=== PATIENT | male | born 2000 | race Caucasian/White ===

== ENCOUNTER → 2021-11-12 08:04 | Outpatient (BNVA) | payer SELFPAY | PROVIDERS: Visit Provider Internal Medicine | DX: S60.141A Contusion of right ring finger with damage to nail, initial encounter (principal); X58.XXXA Exposure to other specified factors, initial encounter | CPT/HCPCS: 73140; 99203 ==

== ENCOUNTER → 2021-11-17 13:07 | Outpatient (BNVA) | payer SELFPAY | PROVIDERS: Visit Provider Physician Assistant Medical | DX: S67.194D Crushing injury of right ring finger, subsequent encounter (principal); S60.14 Contusion of ring finger with damage to nail; W23.0XXD Caught, crushed, jammed, or pinched between moving objects, subsequent encounter; L03.011 Cellulitis of right finger | CPT/HCPCS: 99213 ==

== ENCOUNTER → 2021-11-20 13:04 | Outpatient (BNVA) | payer SELFPAY | PROVIDERS: Visit Provider Physician Assistant | DX: S67.194D Crushing injury of right ring finger, subsequent encounter (principal); W23.0XXD Caught, crushed, jammed, or pinched between moving objects, subsequent encounter | CPT/HCPCS: 99213 ==

== ENCOUNTER 2023-06-28 06:48 | Emergency (ER) | payer MEDICAID, SELFPAY ==
[2023-06-28 06:56] VITALS: BP 128/99; PULSE 104; RESP 22; TEMP 37; O2SAT 98; BMI 23.1
--- NOTE | 2023-06-28 07:21 | ED.GENADULT ---
HPI - General Adult General Chief complaint: Abdominal Pain Stated complaint: kidney stones Time Seen by Provider: 06/28/23 07:13 Source: patient Mode of arrival: ambulatory Limitations: no limitations History of Present Illness HPI narrative: 22 y o male PMH nephrolithiasis 2 months ago, seen at [facility], now presenting for evaluation of dysuria, urinary frequency and flank pain x2 days. Patient denies any trauma to the area. Patient reports that two days ago he woke up with dark brown, cloudy urine and discomfort with urination with associated bilateral flank pain. He reports that his pain with urination has been increasing and that as of yesterday he started urinating very frequently, stating every five minutes I was in the bathroom . This morning he reports increase in the flank pain, bilateral but L>R, describing it as intermittent stabbing type of pain which comes and goes. Also endorsing chills. Patient also states it is extremely difficult to get comfortable. Has been using Ibuprofen without relief. Of note, patient was seen and treated at [facility] 2 months ago for nephrolithiasis and a UTI, patient reports he passed the stones on his own at home and reports he did not finish his antibiotics. Patient presents today stating he took one dose each of the leftover antibiotics this morning, bringing bottles of Doxycycline and Keflex with him today. Patient denying fevers, chest pain, shortness of breath, abdominal pain, dizziness, hematuria, bowel or bladder incontinence, saddle paresthesias. Related Data Previous Rx's Medication Instructions Recorded prednisone 20 mg tablet 40 mg (2 x 20 mg) PO DAILY 5 days 06/28/23 #10 tabs tamsulosin 0.4 mg capsule (Flomax) 0.4 mg PO DAILY 2 weeks #14 caps 06/28/23 Allergies Allergy/AdvReac Type Severity Reaction Status Date / Time sumatriptan [From Imitrex] AdvReac Swelling Verified 06/28/23 07:01 Review of Systems Review of Systems: Constitutional : No Weight loss, No Fever, + Chills, No Fatigue, No Malaise Eyes: No Eye Pain, No Swelling, No Redness Cardiovascular : No Chest Pain, No SOB, No Dyspnea on Exertion, No Orthopnea, No Edema, No Palpitations Respiratory : No Cough, No Sputum, No Wheezing Gastrointestinal : No Nausea, No Vomiting, No Diarrhea, No Constipation, No abdominal Pain, No Hematochezia, No Melena Genitourinary : +Dysuria, +Urinary Frequency, No Hematuria, +Flank pain Musculoskeletal : No joint pain, No Myalgias, No Joint Swelling Skin : No Skin Lesions, No rash Neuro : No Weakness, No Numbness, No Dizziness, No Headache Psych : No Anxiety/Panic, No Depression All other systems reviewed and are negative Yes all other systems are reviewed and are negative [facility] Past Medical History Attestation statement: The following information was validated with the patient. Source: old records reviewed Social History Social History Smoked in Last 30 Days: No Substance Use Type: Marijuana Advance Directives: No Advance Directives Information Provided: Yes Physical Exam ED Vital Signs: Vital Signs - 24 hr 06/28/23 06:56 06/28/23 10:00 06/28/23 11:59 Temperature 98.6 F Pulse Rate 104 H 87 Respiratory Rate 22 H 16 14 Blood Pressure 128/99 H 129/74 Pulse Oximetry 98 97 Oxygen Delivery Method Room Air Room Air BMI result Body Mass Index 23.1 VSS, mildly tachycardic Appearance: Alert.? Oriented X3.? No acute distress.?Patient on his knees bending forward leaning onto a stretcher, frequently adjusting position, uncomfortable. Head: Normocephalic, atraumatic, no step-offs or deformities Eyes: Pupils equal, round and reactive to light.? Neck: Normal inspection.? Neck supple.? CVS: Normal heart rate and rhythm.? Pulses normal.? Respiratory: No respiratory distress.? Breath sounds normal.? Abdomen: Soft and nondistended, suprapubic TTP, otherwise nontender. No rebound or guarding, no peritoneal signs. Skin: Skin warm and dry.? Normal skin color.? Normal skin turgor.? Extremities: No lower extremity edema.? No calf ttp. 5/5 strength to bilateral upper and lower extremities Back: No midline tenderness, no C-spine tenderness, full range of motion, + CVA tenderness bilaterally, L>R Neuro: Oriented X 3.? No motor deficit.? No sensory deficit. CN 2-12 intact. No saddle paresthesias, gross sensation in tact. 2+ PT, DP, AT pulses b/l Course Reevaluation(s) Reevaluation #1: CBC within normal limits. Chemistry with no acute findings requiring intervention. Normal lactic acid. UA with blood and leukocyte esterases, no bacteria. CT abdomen pelvis with bilateral nephrolithiasis, 3 mm nonobstructive radiopaque calculi to the right proximal ureter with mild hydronephrosis, partially obstructive 3 mm radiopaque calculi left distal ureter with hydroureter and hydronephrosis. Mild constipation also noted. Will reach out to Urology to make him aware of this case. Patient very uncomfortable. Will give morphine as well. urology will come see patient in the department will likely get stent /a procedure and possible admission. Time: 09:17 Reevaluation #2: Patient reports his pain is completely gone. He does not Want to stay in the hospital he does not want specialty consult, further labs, intervention. He states he has to go home. He is telling me that he will stay here without his girlfriend and his girlfriend is not staying in the hospital with him. I did explain to him the risks versus benefits of staying in leaving, he verbalizes understanding. Will send him home with Urology follow-up. Patient to be leaving against medical advice Time: 12:11 Medications Administered Discontinued Medications Generic Name Dose Route Start Last Admin Trade Name Freq PRN Reason Stop Dose Admin Sodium Chloride 1,000 mls @ 999 mls/hr 06/28/23 07:30 06/28/23 09:16 Ns IV 06/28/23 08:30 Infused .Q1H1M LISA Infusion Sodium Chloride 1,000 mls @ 999 mls/hr 06/28/23 09:30 06/28/23 11:16 Ns IV 06/28/23 10:30 Infused .Q1H1M LISA Infusion Ketorolac Tromethamine 30 mg 06/28/23 08:00 06/28/23 08:11 Ketorolac Tromethamine 15 Mg/Ml Vial IVPUSH 06/28/23 08:01 30 mg ONCE ONE Administration Morphine Sulfate 4 mg 06/28/23 09:17 06/28/23 11:16 Morphine Sulfate 4 Mg/Ml Cartridge IVPUSH 06/28/23 09:18 Not Given ONCE ONE Protocol Prednisone 20 mg 06/28/23 09:15 06/28/23 09:37 Prednisone 20 Mg Tablet PO 06/28/23 09:16 20 mg ONCE ONE Administration Tamsulosin HCl 0.4 mg 06/28/23 09:15 06/28/23 09:37 Tamsulosin Hcl 0.4 Mg Capsule PO 06/28/23 09:16 0.4 mg ONCE ONE Administration Medical Decision Making Medical Decision Making [facility] Narrative: 07 22 y o male presenting for evaluation of dysuria, urinary frequency and bilateral flank pain x2 days, now with chills PE remarkable for + CVA tenderness bilaterally, L>R and suprapubic TTP, no other abdominal TTP, no rebound or guarding, no peritoneal signs. Mildly tachycardic but afebrile. Uncomfortable appearing Concern for UTI vs nephrolithiasis vs pyelonephritis. Less likely hydronephrosis but will r/o. Unlikely musculoskeletal pain given urinary symptoms, b/l flank pain without trauma and hx of nephrolithiasis with similar sxs. No concern for cauda equina, no saddle paresthesias, gross sensation intact, no bowel or bladder incontinence. No concern for epidural abscess, no hx of IVDU, recent trauma, not immunocompromised. no signs of cord compression. Will rule out metabolic derangements. Plan -- labs, imaging Differential Diagnosis Differential Diagnoses: The differential diagnosis associated with the presentation includes Concern for UTI vs nephrolithiasis vs pyelonephritis. Less likely hydronephrosis but will r/o. Unlikely musculoskeletal pain given urinary symptoms, b/l flank pain without trauma and hx of nephrolithiasis with similar sxs. No concern for cauda equina, no saddle paresthesias, gross sensation intact, no bowel or bladder incontinence. No concern for epidural abscess, no hx of IVDU, recent trauma, not immunocompromised. no signs of cord compression. Will rule out metabolic derangements. Admission/Observation Consideration of admission/observation: Escalation of care including admission/observation considered Unlikely Consult Healthcare Provider Management of the patient was discussed with: Angle Shear Operator ( Urology) Lab Data [facility] Lab Attestation statement: I reviewed the patient's lab results. 06/28/23 07:38 06/28/23 07:38 Labs: Lab Results 06/28/23 06/28/23 Range/Units 07:38 07:46 WBC 9.4 (4.8-10.8) X10*3/uL RBC 4.82 (4.60-5.80) X10*6/uL Hgb 15.5 (14.0-18.0) g/dl Hct 44.1 (42.0-52.0) % MCV 91.5 (80.0-98.0) fL MCH 32.2 (27.0-33.0) pg MCHC 35.1 (31.0-36.0) g/dl RDW 12.4 (11.0-16.0) % Plt Count 230 (160-400) X10*3/uL MPV 9.1 L (9.4-12.4) fL Absolute Nucleated RBC 0.000 (0.0-0.012) X10*3/uL Nucleated RBC % (auto) 0.0 (0.0-0.2) /100WBC Sodium 137 (135-145) mmol/L Potassium 3.5 (3.3-5.1) mmol/L Chloride 102 (96-108) mmol/L Carbon Dioxide 23 (22-29) mmol/L Anion Gap 16 (12-20) BUN 7 L (9-16) mg/dL Creatinine 0.88 (0.5-1.4) mg/dL Estim Creat Clear Calc 150.7 Estimated GFR > 60 Random Glucose 114 (60-115) mg/dL Lactic Acid 1.3 (0.5-2.0) mmol/L Calcium 9.7 (8.4-10.2) mg/dL Total Bilirubin 0.6 (0.0-1.0) mg/dL AST 14 (5-37) U/L ALT 7 (0-40) U/L Alkaline Phosphatase 74 (39-117) U/L Total Protein 7.4 (6.5-8.0) g/dL Albumin 4.6 (3.5-5.0) g/dL Lipase 26 (8-78) U/L Urine Color Yellow Urine Appearance Clear Urine pH 6.0 (5.0-9.0) Ur Specific [place] <= 1.005 (1.005-1.025) Urine Protein Negative (Neg-Trace) mg/dL Urine Glucose (UA) Negative (Negative) mg/dL Urine Ketones Negative (Negative) mg/dL Urine Blood Large (3+) H (Negative) Urine Nitrite Negative (Negative) Ur Leukocyte Esterase Trace H (Negative) Urine RBC 11-20 H (0-2) /HPF Urine WBC 0-5 (0-5) /HPF Ur Squamous Epith Cells 0-2 (0-2) /HPF Urine Bacteria None Seen (None Seen) Hyaline Casts 0-2 (0-2) /LPF Independent Interpretation I performed an independent interpretation of an: CT Scan Radiology Impression Discussion of test interpretation with radiology: I have reviewed the radiologist's reading. External Record Review External record reviewed: Inpatient record and Prior outpatient labs Critical Care Time Critical Care Time Critical Care Time: Yes Total Critical Care Time: 35 Attestation: I attest to this time spent taking care of the patient, obtaining history, physical, reviewing labs, imaging, speaking to my attending, speaking to specialist. Discharge Plan Discharge Clinical Impression: Kidney calculi, Hydronephrosis, Left against medical advice Patient Disposition: Home, Self-Care Instructions: Kidney Stones (ED), Hydronephrosis (ED), Against Medical Advice (ED) Additional Instructions: Take your medications as prescribed. If you were prescribed antibiotics today, it is important that you take your medication to their entirety, do not skip any doses, do not finish them early. Follow-up with your primary care provider this week. Return to the emergency department with new or worsening symptoms. Such as fevers, chills, chest pain, shortness of breath, nausea, vomiting, dizziness, headache, vision changes, lethargy In case of emergency call 911 Prescriptions: New prednisone 20 mg tablet 40 mg PO DAILY 5 Days Qty: 10 0RF tamsulosin [Flomax] 0.4 mg capsule 0.4 mg PO DAILY 14 Days Qty: 14 0RF Referrals: [facility] [Provider Group] - 1 week Physician,Unknown J [Primary Care Provider] - 2 days Stand Alone Forms: Against Medical Advice, Work/School Release
[2023-06-28 07:56] LABS: Alanine Aminotransferase 7 U/L (0-40); Albumin Level 4.6 g/dL (3.5-5.0); Alkaline Phosphatase 74 U/L (39-117); Anion Gap 16 (12-20); Aspartate Amino Transferase 14 U/L (5-37); Bilirubin Total 0.6 mg/dL (0.0-1.0); Blood Urea Nitrogen 7 mg/dL (9-16); Calcium 9.7 mg/dL (8.4-10.2); Carbon Dioxide 23 mmol/L (22-29); Chloride 102 mmol/L (96-108); Creatinine Clr Calc Pharmacy 150.7; Estimated Glomerular Filt Rate > 60; Glucose Random 114 mg/dL (60-115); Lipase 26 U/L (8-78); Potassium 3.5 mmol/L (3.3-5.1); Sodium 137 mmol/L (135-145); Total Protein 7.4 g/dL (6.5-8.0)
--- NOTE | 2023-06-28 09:56 | PC.NURSE ---
pt a&o x4, calm, and cooperative. pt kneeling at bedside, slumped over in pain. sts this position is comfortable for him. pain to pt's abdomen and lower back. IV established, blood drawn, urine sent. CT scan complete. pt medicated per nov. sts pain relief from first round of pain meds. pt partner at bedside. plan of care ongoing. rr even/unlabored. call guajardo within pt reach.
[2023-06-28 10:00] VITALS: RESP 16
--- NOTE | 2023-06-28 11:46 | PC.NURSE ---
pt requesting to go home. pt advised that provider is in with a critical pt right now. pt sts he will stay until discharged by provider but does not want to be admitted. pt requesting this RN to take out IV due to pain. IV taken out per pt request.
[2023-06-28 11:59] VITALS: BP 129/74; PULSE 87; RESP 14; O2SAT 97
== END 2023-06-28 12:34 | disposition home or self-care (01) ==
PROVIDERS: Emergency Provider Student in an Organized Health Care Education/Training Program
DX: N20.0 Calculus of kidney (principal); N13.30 Unspecified hydronephrosis; R35.0 Frequency of micturition; R10.2 Pelvic and perineal pain; Z79.899 Other long term (current) drug therapy
CPT/HCPCS: 36415; 74176; 80053; 81001; 83605; 83690; 85027; 87040; 96361; 96374; 99284; J1885

== ENCOUNTER 2023-06-28 22:10 | Emergency (ER) | payer MEDICAID, SELFPAY ==
[2023-06-28 22:33] VITALS: BP 116/75; PULSE 72; RESP 16; TEMP 36.8; O2SAT 98; BMI 26.7
--- NOTE | 2023-06-28 23:01 | MHC.EDTECH ---
Urine specimen collected and sent to lab.patient placed back in waiting room.
--- NOTE | 2023-06-29 01:38 | ED.ABDPAIN ---
HPI - Abdominal Pain General Chief Complaint: Abdominal Pain Stated Complaint: ?Kidney stone Time Seen by Provider: 06/29/23 01:24 Source: patient and family Mode of arrival: ambulatory Limitations: no limitations History of Present Illness HPI narrative: A 22-year-old male history of kidney stone seen this morning in our emergency department for abdominal pain had a CT scan showed 3 mm stone in the right proximal ureter and another 3 mm stone in the left distal ureter, patient was discharged on prednisone and Flomax patient come back for left flank pain and left groin pain, no nausea, no vomiting, no fever. Patient took the 1st dose of prednisone and Flomax which did not improve his pain. Related Data Previous Rx's Medication Instructions Recorded prednisone 20 mg tablet 40 mg (2 x 20 mg) PO DAILY 5 days 06/28/23 #10 tabs tamsulosin 0.4 mg capsule (Flomax) 0.4 mg PO DAILY 2 weeks #14 caps 06/28/23 levofloxacin 750 mg tablet 750 mg PO DAILY #7 tabs 06/29/23 oxycodone 5 mg tablet 5 mg PO Q8H PRN pain #7 tabs 06/29/23 Allergies Allergy/AdvReac Type Severity Reaction Status Date / Time sumatriptan [From Imitrex] AdvReac Swelling Verified 06/28/23 07:01 Review of Systems Review of Systems All other systems are reviewed and are negative Constitutional: Reports as per HPI and Reports no additional constitutional complaints Eyes: Reports as per HPI and Reports no additional eye complaints Reports system reviewed and no additional complaints, except as documented Cardiovascular: Reports as per HPI and Reports no additional cardiovascular complaints Respiratory: Reports as per HPI and Reports no additional respiratory complaints Gastrointestinal: Reports as per HPI and Reports no additional gastrointestinal complaints Genitourinary: Reports no additional female genitourinary complaints Musculoskeletal: Reports no additional musculoskeletal complaints Skin/Breast: Reports system reviewed and no additional complaints, except as docu Psychiatric: Reports no additional psychiatric complaints Endocrine: Reports no additional endocrine complaints Hematologic/Lymphatic: Reports no additional hematologic/lymphatic complaints Allergic/Immunologic: Reports no additional allergic/immunologic complaints Reports system reviewed and no additional complaints, except as documented and Reports Abnormal speech present PMFSH Social History Social History Substance Use Type: Marijuana Advance Directives: No Advance Directives Information Provided: Yes Physical Exam ED Vital Signs: Vital Signs - 24 hr 06/28/23 22:33 Temperature 98.2 F Pulse Rate 72 Respiratory Rate 16 Blood Pressure 116/75 Pulse Oximetry 98 Oxygen Delivery Method Room Air BMI result Body Mass Index 26.7 Vital signs have been reviewed and appear to be correct. Blood pressure elevated. Heart rate normal. Respiratory rate normal. Temperature normal. Oxygen saturation normal. Appearance: Alert. Oriented X3. No acute distress. Head: Normal external exam. Normocephalic. Atraumatic. No Hall signs noted. No raccoon eyes noted Eyes: PERRLA. EOMI. Conjunctiva and sclera normal. Eyelids normal. ENT: TM's Normal. Pharynx normal. Uvula midline. Moist mucous membranes. No trismus noted. No drooling noted. No muffled voice noted. Neck: Normal inspection. Neck supple. FROM. No adenopathy. Thyroid Normal. No meningeal signs. No neck mass noted. CVS: Normal heart rate and rhythm. Heart sound normal. No murmurs noted. Pulses normal throughout. Respiratory: No respiratory distress. Painless inspiration. Breath sounds normal. No wheezes/rales/rhonchi noted. Chest nontender. No accessory muscle usage noted or decreased air movement noted. Abdomen: Soft and nontender. Bowel sounds normal in all 4 quadrants. No distention noted. No organomegaly noted. No visible injury noted. exam: No testicular tenderness, intact cremasteric reflex bilateral. Back: No CVA tenderness. Full range of motion noted. Skin: Skin warm and dry. Normal skin color. Normal skin turgor. No rashes/lesions/lacerations noted. Extremities: No lower extremity edema. Extremities exhibit normal range of motion. Extremities nontender. Neuro: Oriented X 3. Cranial nerve exam: II-XII are grossly intact No motor deficit. No sensory deficit. Reflexes normal. Course Course Course Narrative: 22-year-old male with history of kidney stones had a CT scan showed partially obstructive 3 mm stone in the left distal ureter and 3 mm stone in the right proximal ureter. Patient has a UTI and a urine analysis today will start the patient on Levaquin, oxycodone and continue with the prednisone and Flomax patient was given information to Dr. Salcido to make an appointment as an outpatient. Medical Decision Making Differential Diagnosis Differential Diagnoses: The differential diagnosis associated with the presentation includes (UTI, kidney stone, pyelonephritis.) Admission/Observation Consideration of admission/observation: Escalation of care including admission/observation considered Lab Data MDM Lab Attestation statement: I reviewed the patient's lab results. Labs: Lab Results 06/28/23 Range/Units 22:59 Urine Color Yellow Urine Appearance Clear Urine pH 5.5 (5.0-9.0) Ur Specific [place] 1.020 (1.005-1.025) Urine Protein Negative (Neg-Trace) mg/dL Urine Glucose (UA) Negative (Negative) mg/dL Urine Ketones Negative (Negative) mg/dL Urine Blood Large (3+) H (Negative) Urine Nitrite Negative (Negative) Ur Leukocyte Esterase Moderate (2+) H (Negative) Urine RBC >20 H (0-2) /HPF Urine WBC 6-10 H (0-5) /HPF Ur Squamous Epith Cells 0-2 (0-2) /HPF Urine Bacteria None Seen (None Seen) Hyaline Casts 0-2 (0-2) /LPF Independent Interpretation I performed an independent interpretation of an: CT Scan (1. Bilateral nephrolithiasis. 2. 3 mm nonobstructive radiopaque calculi right proximal ureter with mild hydronephrosis. 3. Partially obstructive 3 mm radiopaque calculi left distal ureter with mild hydroureter and hydronephrosis. 4. Mild constipation.) Radiology Impression Discussion of test interpretation with radiology: I have reviewed the radiologist's reading. Chronic Conditions Patient?s care impacted by: Other (Kidney stone.) Discharge Plan Discharge Clinical Impression: Calculi, ureter, Acute UTI Patient Disposition: Home, Self-Care Instructions: Renal Colic (ED) Prescriptions: New levofloxacin 750 mg tablet 750 mg PO DAILY Qty: 7 0RF oxycodone 5 mg tablet 5 mg PO Q8H PRN (Reason: pain) Qty: 7 0RF Rx Instructions: Partial Fill upon patient request. No Action prednisone 20 mg tablet 40 mg PO DAILY 5 Days Qty: 10 0RF tamsulosin [Flomax] 0.4 mg capsule 0.4 mg PO DAILY 14 Days Qty: 14 0RF Referrals: Kyle Salcido MD [Physician] -
== END 2023-06-29 02:19 | disposition home or self-care (01) ==
PROVIDERS: Emergency Provider Emergency Medicine
DX: N20.1 Calculus of ureter (principal); N39.0 Urinary tract infection, site not specified
CPT/HCPCS: 81001; 87086; 99283

== ENCOUNTER 2023-07-02 08:59 | Emergency (ER) | payer MEDICAID, SELFPAY ==
[2023-07-02 09:17] VITALS: BP 154/91; PULSE 81; RESP 18; TEMP 36.7; O2SAT 98; BMI 27.4
--- NOTE | 2023-07-02 09:21 | ED_ITS ---
HPI - Male Genitourinary General Chief complaint: Urogenital-Male Stated complaint: kidney stone pain Time Seen by Provider: 07/02/23 09:13 Source: patient and family Mode of arrival: ambulatory Limitations: no limitations History of Present Illness HPI Narrative: A 22-year-old male history of kidney stone seen this morning in our emergency department for abdominal pain , left flank pain had a CT scan on 06/28 showed 3 mm stone in the right proximal ureter and another 3 mm stone in the left distal ureter, patient was discharged on prednisone and Flomax patient come back for left flank pain and left groin pain, no nausea, no vomiting, no fever. Patient took the 1st dose of prednisone and Flomax which did not improve his pain. Related Data Previous Rx's Medication Instructions Recorded prednisone 20 mg tablet 40 mg (2 x 20 mg) PO DAILY 5 days 06/28/23 #10 tabs tamsulosin 0.4 mg capsule (Flomax) 0.4 mg PO DAILY 2 weeks #14 caps 06/28/23 levofloxacin 750 mg tablet 750 mg PO DAILY #7 tabs 06/29/23 oxycodone 5 mg tablet 5 mg PO Q8H PRN pain #7 tabs 06/29/23 ketorolac 10 mg tablet 10 mg PO Q8H PRN pain #14 tabs 07/02/23 prednisone 20 mg tablet 20 mg PO BID #8 tabs 07/02/23 tamsulosin 0.4 mg capsule (Flomax) 0.4 mg PO DAILY #10 caps 07/02/23 Allergies Allergy/AdvReac Type Severity Reaction Status Date / Time sumatriptan [From Imitrex] AdvReac Swelling Verified 06/28/23 07:01 Review of Systems 2 Review of Systems: all other systems are reviewed and are negative Constitutional: Reports as per HPI and Reports no additional constitutional complaints Eyes: Reports as per HPI and Reports no additional eye complaints Reports system reviewed and no additional complaints, except as documented Cardiovascular: Reports as per HPI and Reports no additional cardiovascular complaints Respiratory: Reports as per HPI and Reports no additional respiratory complaints Gastrointestinal: Reports as per HPI and Reports no additional gastrointestinal complaints Genitourinary: Reports no additional female genitourinary complaints Musculoskeletal: Reports no additional musculoskeletal complaints Skin/Breast: Reports system reviewed and no additional complaints, except as docu Psychiatric: Reports no additional psychiatric complaints Endocrine: Reports no additional endocrine complaints Hematologic/Lymphatic: Reports no additional hematologic/lymphatic complaints Allergic/Immunologic: Reports no additional allergic/immunologic complaints Reports system reviewed and no additional complaints, except as documented and Reports Abnormal speech present [facility] Social History Social History Substance Use Type: Marijuana Advance Directives: No Advance Directives Information Provided: No Physical Exam 2 Vital Signs: Vital Signs: Last Vital Signs Temp 98.4 F 07/02/23 11:44 Pulse 76 07/02/23 11:44 Resp 16 07/02/23 11:44 BP 137/81 07/02/23 11:44 Pulse Ox 100 07/02/23 11:44 O2 Del Method Room Air 07/02/23 11:44 BMI result Body Mass Index 27.4 Vital signs have been reviewed and appear to be correct. Blood pressure elevated. Heart rate normal. Respiratory rate normal. Temperature normal. Oxygen saturation normal. Appearance: Alert. Oriented X3. No acute distress. Head: Normal external exam. Normocephalic. Atraumatic. No Hall signs noted. No raccoon eyes noted Eyes: PERRLA. EOMI. Conjunctiva and sclera normal. Eyelids normal. ENT: TM's Normal. Pharynx normal. Uvula midline. Moist mucous membranes. No trismus noted. No drooling noted. No muffled voice noted. Neck: Normal inspection. Neck supple. FROM. No adenopathy. Thyroid Normal. No meningeal signs. No neck mass noted. CVS: Normal heart rate and rhythm. Heart sound normal. No murmurs noted. Pulses normal throughout. Respiratory: No respiratory distress. Painless inspiration. Breath sounds normal. No wheezes/rales/rhonchi noted. Chest nontender. No accessory muscle usage noted or decreased air movement noted. Abdomen: Soft and nontender. Bowel sounds normal in all 4 quadrants. No distention noted. No organomegaly noted. No visible injury noted. Back: No CVA tenderness. Full range of motion noted. Skin: Skin warm and dry. Normal skin color. Normal skin turgor. No rashes/lesions/lacerations noted. Extremities: No lower extremity edema. Extremities exhibit normal range of motion. Extremities nontender. Neuro: Oriented X 3. Cranial nerve exam: II-XII are grossly intact No motor deficit. No sensory deficit. Reflexes normal. Course Reevaluation(s) Reevaluation #1: patient remained in the emergency department in no distress, patient is sleeping in bed appears comfortable, complete resolution of UTI the case was discussed with Dr. Erika Chaney who recommended to discharge the patient on Flomax, NSAIDs and follow up as an outpatient. Time: 12:26 Medications Administered Discontinued Medications Generic Name Dose Route Start Last Admin Trade Name Freq PRN Reason Stop Dose Admin Sodium Chloride 1,000 mls @ 999 mls/hr 07/02/23 09:13 07/02/23 11:21 Ns IV 07/02/23 10:13 Infused .Q1H1M ONE Infusion Ketorolac Tromethamine 30 mg 07/02/23 09:20 07/02/23 09:30 Ketorolac Tromethamine 30 Mg/Ml Vial IVPUSH 07/02/23 09:21 30 mg ONCE ONE Administration Medical Decision Making Differential Diagnosis Differential Diagnoses: The differential diagnosis associated with the presentation includes ( UTI, renal colic, muscular flank pain.) Admission/Observation Consideration of admission/observation: Escalation of care including admission/observation considered Consult Healthcare Provider Management of the patient was discussed with: Progressive Care Unit Registered Nurse ( Dr. Erika Dobbs.) Lab Data MDM Lab Attestation statement: I reviewed the patient's lab results. 07/02/23 09:25 07/02/23 09:25 Labs: Lab Results 07/02/23 07/02/23 Range/Units 09:25 10:51 WBC 8.0 (4.8-10.8) X10*3/uL RBC 4.90 (4.60-5.80) X10*6/uL Hgb 15.8 (14.0-18.0) g/dl Hct 43.7 (42.0-52.0) % MCV 89.2 (80.0-98.0) fL MCH 32.2 (27.0-33.0) pg MCHC 36.2 H (31.0-36.0) g/dl RDW 12.2 (11.0-16.0) % Plt Count 223 (160-400) X10*3/uL MPV 9.0 L (9.4-12.4) fL Immature Gran % (Auto) 0.4 (0.0-0.4) % Neut % (Auto) 75.1 H (45-73) % Lymph % (Auto) 15.6 L (20-40) % [place] % (Auto) 8.6 (2-11) % Eos % (Auto) 0.0 (0-4) % Baso % (Auto) 0.3 (0-2) % Lymph # (Auto) 1.3 (1.2-4.9) X10*3/uL [place] # (Auto) 0.7 (0.1-1.2) X10*3/uL Eos # (Auto) 0.0 (0.0-0.4) X10*3/uL Baso # (Auto) 0.0 (0.0-0.2) X10*3/uL Abs Immat Gran (auto) 0.03 (0.00-0.03) X10*3/uL Absolute Neuts (auto) 6.0 (2.0-8.3) x10*3/uL Absolute Nucleated RBC 0.000 (0.0-0.012) X10*3/uL Nucleated RBC % (auto) 0.0 (0.0-0.2) /100WBC Sodium 141 (135-145) mmol/L Potassium 3.6 (3.3-5.1) mmol/L Chloride 101 (96-108) mmol/L Carbon Dioxide 24 (22-29) mmol/L Anion Gap 20 (12-20) BUN 16 (9-16) mg/dL Creatinine 1.70 H (0.5-1.4) mg/dL Estim Creat Clear Calc 65.3 Estimated GFR 50 Random Glucose 92 (60-115) mg/dL Calcium 10.3 H D (8.4-10.2) mg/dL Total Bilirubin 0.9 (0.0-1.0) mg/dL Direct Bilirubin 0.3 (0.0-0.5) mg/dL AST 13 (5-37) U/L ALT 9 (0-40) U/L Alkaline Phosphatase 73 (39-117) U/L Total Protein 7.8 (6.5-8.0) g/dL Albumin 4.6 (3.5-5.0) g/dL Lipase 12 (8-78) U/L Urine Color Yellow Urine Appearance Cloudy Urine pH 6.5 (5.0-9.0) Ur Specific [place] 1.025 (1.005-1.025) Urine Protein Trace (Neg-Trace) mg/dL Urine Glucose (UA) Negative (Negative) mg/dL Urine Ketones 40 (Negative) mg/dL Urine Blood Large (3+) H (Negative) Urine Nitrite Negative (Negative) Ur Leukocyte Esterase Trace H (Negative) Urine RBC >20 H (0-2) /HPF Urine WBC 0-5 (0-5) /HPF Ur Squamous Epith Cells 0-2 (0-2) /HPF Urine Bacteria None Seen (None Seen) Hyaline Casts 3-5 (0-2) /LPF Discharge Plan Discharge Clinical Impression: Renal colic Patient Disposition: Home, Self-Care Instructions: Renal Colic (ED) Prescriptions: New tamsulosin [Flomax] 0.4 mg capsule 0.4 mg PO DAILY Qty: 10 0RF prednisone 20 mg tablet 20 mg PO BID Qty: 8 0RF ketorolac 10 mg tablet 10 mg PO Q8H PRN (Reason: pain) Qty: 14 0RF No Action prednisone 20 mg tablet 40 mg PO DAILY 5 Days Qty: 10 0RF tamsulosin [Flomax] 0.4 mg capsule 0.4 mg PO DAILY 14 Days Qty: 14 0RF levofloxacin 750 mg tablet 750 mg PO DAILY Qty: 7 0RF oxycodone 5 mg tablet 5 mg PO Q8H PRN (Reason: pain) Qty: 7 0RF Rx Instructions: Partial Fill upon patient request. Referrals: Kyle Salcido MD [Physician] - Physician,None [Primary Care Provider] -
[2023-07-02 09:30] LABS: MANUAL DIFF FLAG NO
[2023-07-02] MEDS: Ketorolac Tromethamine 30 MG/ML VIAL IVPUSH (09:30)
[2023-07-02] MEDS: 0.9 % Sodium Chloride 1,000 ML 999 ML IV (09:31)
[2023-07-02 09:33] LABS: Basophils Percent Auto 0.3 % (0-2); Hematocrit 43.7 % (42.0-52.0); Hemoglobin 15.8 g/dl (14.0-18.0); Imm Gran Abs Auto 0.03 X10*3/uL (0.00-0.03); Imm Gran Pct Auto 0.4 % (0.0-0.4); Lymphocytes Absolute Auto 1.3 X10*3/uL (1.2-4.9); Lymphocytes Percent Auto 15.6 % (20-40); Mean Corpuscular HGB Conc 36.2 g/dl (31.0-36.0); Mean Corpuscular Hemoglobin 32.2 pg (27.0-33.0); Mean Corpuscular Volume 89.2 fL (80.0-98.0); Monocytes Absolute Auto 0.7 X10*3/uL (0.1-1.2); Monocytes Percent Auto 8.6 % (2-11); Neutrophils Percent Auto 75.1 % (45-73); Platelet Count 223 X10*3/uL (160-400); Red Cell Distribution Width 12.2 % (11.0-16.0)
[2023-07-02 10:09] LABS: Alanine Aminotransferase 9 U/L (0-40); Albumin Level 4.6 g/dL (3.5-5.0); Alkaline Phosphatase 73 U/L (39-117); Anion Gap 20 (12-20); Aspartate Amino Transferase 13 U/L (5-37); Bilirubin Direct 0.3 mg/dL (0.0-0.5); Bilirubin Total 0.9 mg/dL (0.0-1.0); Blood Urea Nitrogen 16 mg/dL (9-16); Calcium 10.3 mg/dL (8.4-10.2); Carbon Dioxide 24 mmol/L (22-29); Chloride 101 mmol/L (96-108); Creatinine Clr Calc Pharmacy 65.3; Estimated Glomerular Filt Rate 50; Glucose Random 92 mg/dL (60-115); Lipase 12 U/L (8-78); Potassium 3.6 mmol/L (3.3-5.1); Sodium 141 mmol/L (135-145); Total Protein 7.8 g/dL (6.5-8.0)
[2023-07-02 11:01] LABS: Appearance Urine Cloudy; Color Urine Yellow; Glucose Urine UA Negative (Negative); Leukocyte Esterase Urine Trace (Negative); Nitrite Urine Negative (Negative); PH 6.5 (5.0-9.0); Specific Gravity - Urine 1.025 (1.005-1.025); UMIC TRIGGER UACC YES; Urine Blood Large (3+) (Negative); Urine Ketones 40 mg/dL (Negative); Urine Protein Trace mg/dL (Neg-Trace)
[2023-07-02 11:11] LABS: Bacteria Urine None Seen (None Seen); RBC Urine >20 /HPF (0-2); Squamous Epithelial Cell Urine 0-2 /HPF (0-2); WBC Urine 0-5 /HPF (0-5)
[2023-07-02 11:44] VITALS: BP 137/81; PULSE 76; RESP 16; TEMP 36.9; O2SAT 100
--- NOTE | 2023-07-02 12:15 | PC.NURSE ---
patient has not had any episode of nausea or vomiting while in ED. resting in bed, appears to be in no distress
== END 2023-07-02 12:51 | disposition home or self-care (01) ==
PROVIDERS: Emergency Provider Emergency Medicine
DX: N23 Unspecified renal colic (principal); R82.90 Unspecified abnormal findings in urine
CPT/HCPCS: 36415; 80048; 80076; 81001; 81003; 83690; 85025; 96361; 96374; 99284; J1885

== ENCOUNTER 2023-08-03 13:30 | Outpatient (REF) | payer MEDICAID, SELFPAY | END 2023-08-03 13:31 | disposition home or self-care (01) | LOC: HO.LAB 13:30 | PROVIDERS: Visit Provider Urology | DX: N39.0 Urinary tract infection, site not specified (principal); N20.0 Calculus of kidney; N20.1 Calculus of ureter; N13.30 Unspecified hydronephrosis; N39.8 Other specified disorders of urinary system; Z79.899 Other long term (current) drug therapy | CPT/HCPCS: 51798; 81003; 87086; 99202 ==

== ENCOUNTER 2023-08-03 13:30 | Outpatient (AMB) | payer MEDICAID, SELFPAY ==
--- NOTE | 2023-08-03 13:33 | MHC.OFFVIS ---
Intake Intake Visit Reasons: Nephrolithiasis Allergies sumatriptan [From Imitrex] Adverse Reaction (Verified 08/03/23 13:41) Swelling HPI HPI Comments History of Present Illness Details Landen is a 22-year-old male who presents today to the office to establish as a new patient for an evaluation of nephrolithiasis. 08/03/2023-- 08/03/2023: Evaluation today--UA-- 08/03/2023: Plan: [facility] Surgical History (Updated 08/03/23 @ 13:39 by CHRISTY House) No pertinent past surgical history Family History (Updated 08/03/23 @ 13:40 by CHRISTY House) Father No problems noted. Mother No problems noted. Social History (Updated 08/03/23 @ 13:40 by CHRISTY House) Alcohol intake: current Alcohol intake frequency: does not drink Patient Tobacco Use Status: Never used Tobacco Substance Use Type: Marijuana Assessment & Plan Assessment & Plan Patient Instructions: The patient had an opportunity to ask questions regarding treatment plan. All questions were answered. Imaging, Laboratory studies and physical exam results were discussed and reviewed in detail. No major barriers to understanding were identified. The patient expressed understanding and agreement with the above treatment plan. The patient is aware they should contact our office by phone for worsening of their current condition or the appearance of new symptoms. Compliance is encouraged with any medications and followup testing that is ordered. It is a privilege to be allowed the opportunity to participate in the urologic care of your patient. If you have any questions or concerns regarding treatment for the above conditions please do not hesitate to contact me. The office telephone contact is [phone]. This note is constructed in part using voice recognition software. While every effort has been made to ensure accuracy human resources supervisor errors may have been included. Yours sincerely, Erika Chaney MD Coding
--- NOTE | 2023-08-03 13:34 | A.OFFVIS_ITS ---
Intake Intake Visit Reasons: Nephrolithiasis Intake Note: NEW Patient presents today to established treatment for Nephrolithiasis: Meds- Tamsulosin & Prednisone Allergies to Antibiotic- No Known Allergies Blood Thinner- None Unable to void, patient was provided with a cup of water, patient stated might have an UTI. PVR- >13.0 mL Human Resource Analyst Required: No Accompanied by: Self / Same As Patient Allergies sumatriptan [From Imitrex] Adverse Reaction (Verified 08/03/23 13:41) Swelling Medication List - Last Reconciled 08/03/23 by Erika Chaney MD tamsulosin (Flomax) 0.4 mg PO DAILY HPI HPI Comments History of Present Illness Details Landen is a 22-year-old male who presents today to the office as a new patient for an evaluation of nephrolithiasis. 08/03/2023-- He was last seen in ER on 06/28/2023 for abdominal pain and has had CAT scan done at that time. I reviewed the CAT scan results revealed bilateral kidney stones as well as ureteral stones. Partially obstructive 3 mm radiapaque calculi left distal ureter, and 3 mm non obstructive calculi right proximal ureter with mild hydronephrosis. Patient states that he does not know that if he passed the stones in the past. He was treated with antibiotics for urinary tract infection which was completed, and he was prescribed Flomax which was completed by him. He mentions having achy feeling in the lower pelvic area and below the scrotum and has increased urinary urgency. I discussed with the patient that the metabolic work up will be helpfull as a baseline including 24-hour urine and blood work for calcium and parathyroid hormone level. A diet sheet was given to him. I reviewed the diet sheet with him instructing the importance of consuming adequate amount of fluids, low oxalate, low sodium and advised to reduce animal protein. Examination: mild tenderness in the right lower quadrant. 08/03/2023: Evaluation today--UA--Leukoc ytes: 70 Audie; blood: 1+. 08/03/2023: Plan: I will send urine for culture. Renal US with a fu post. Tamsulosin refilled. PFSH Surgical History (Updated 08/03/23 @ 13:39 by CHRISTY House) No pertinent past surgical history Family History (Updated 08/03/23 @ 13:40 by CHRISTY House) Father No problems noted. Mother No problems noted. Social History (Updated 08/03/23 @ 13:40 by CHRISTY House) Alcohol intake: current Alcohol intake frequency: does not drink Patient Tobacco Use Status: Never used Tobacco Substance Use Type: Marijuana Review of Systems Const All systems reviewed & are unremarkable except as noted in HPI and below Reports no additional complaints Eyes Reports no additional complaints Card Denies leg edema Resp Denies cough GI Denies constipation Musc Reports no additional complaints Skin/Breast Denies rash and Denies unusual bruising Neuro Reports no additional complaints Psych Reports no additional complaints Endo Reports no additional complaints Teto/Lymph Reports no additional complaints Aller/Immun Reports no additional complaints Physical Exam Const General: healthy appearing, no acute distress and well developed Orientation/consciousness: patient oriented x3 HEENT Head: Yes normocephalic and Yes atraumatic Eyes Conjunctivae: conjunctivae normal Neck Neck: Yes normal visual inspection Chest Chest palpation & inspection: normal inspection of the chest Resp Effort & Inspection: normal respiratory effort Cardio Rate: regular rate GI Inspection: Yes normal to inspection Palpation (GI): Soft to palpation and Tenderness to palpation present (GI) in the RLQ General: Yes no CVA tenderness Back/Spine/Pelvis Back: no CVA tenderness Skin General skin exam: no rashes or lesions noted Neuro General: patient oriented x3 Extrem General: No pedal edema Psych Appearance: grossly normal Affect: normal affect Office Procedures Post Void Residual Post Residual Void Post Void Residual (PVR): 13 [id number] Void Residual by ultrasound Results AMB Urinalysis, Automated UA Leukoctes 70 Audie/uL Last Edit by CHRISTY House on 08/03/23 14:01 1+ Alexa Grace 08/03/23 14:01 UA Nitrite Negative Last Edit by CHRISTY House on 08/03/23 14:01 UA Urobilinogen 0.2 mg/dL Last Edit by Alexa Grace, A on 08/03/23 14:0 1 UA Protein 0 mg/dL Last Edit by Alexa Sanjay, A on 08/03/23 14:01 UA pH 6.0 Last Edit by Alexa Grace, A on 08/03/23 14:01 UA Blood 200 Oscar/uL Last Edit by Nusratremedioshui Granadosjanice A on 08/03/23 14:01 UA Specific [place] 1.015 Last Edit by Alexa Sanjay, A on 08/03/23 14: 01 UA Ketone Negative Last Edit by Denissehui Granadosirez, A on 08/03/23 14:01 UA Bilirubin 0 mg/dL Last Edit by Alexa Sanjay, A on 08/03/23 14:01 UA Glucose 0 mg/dL Last Edit by Nusratremedioshui Granadosjanice A on 08/03/23 14:01 Results Reviewed Results Reviewed: Laboratory Last Values Urine pH (Auto) 6.0 08/03/23 13:53 Specific [place] (Auto) 1.015 08/03/23 13:53 Urine Protein (Auto) 0 mg/dL 08/03/23 13:53 Glucose (UA)(Auto) 0 mg/dL 08/03/23 13:53 Urine Ketones (Auto) Negative 08/03/23 13:53 Urine Blood (Auto) 200 Oscar/uL 08/03/23 13:53 Urine Nitrite (Auto) Negative 08/03/23 13:53 Urine Bilirubin (Auto) 0 mg/dL 08/03/23 13:53 Urine Urobilinogen (Auto) 0.2 mg/dL 08/03/23 13:53 Leukocyte Esterase (Auto) 70 Audie/uL 08/03/23 13:53 Date of Service: 06/28/23 EXAMINATION: CT ABDOMEN AND PELVIS WITHOUT CONTRAST CLINICAL INFORMATION: Bilateral flank pain, history of nephrolithiasis. Abdominal pain. COMPARISON: None available. FINDINGS: LUNG BASES: The lung bases are clear. Heart size is normal. LIVER, GALLBLADDER, AND BILIARY TREE: The liver is normal in size, shape, and attenuation. No focal hepatic lesion or biliary ductal dilatation is present. The gallbladder is unremarkable with no evidence of radiopaque gallstones, gallbladder wall thickening, or obvious pericholecystic inflammatory changes. PANCREAS: Unremarkable. SPLEEN: Unremarkable. ADRENAL GLANDS: Unremarkable. KIDNEYS AND URETERS: The kidneys are normal in size, shape, and attenuation. There are punctate radiopaque calculi in upper and midpole right kidney measuring measuring 3 mm without caliectasis. There are several 2 mm radiopaque calculi mid and lower pole left kidney. There is a 3 minute nonobstructive radiopaque calculi right proximal ureter with mild hydronephrosis. An partially obstructive 3 no radiopaque calculi left distal ureter with mild hydroureter and hydronephrosis. BLADDER: Unremarkable. GASTROINTESTINAL TRACT: There is scattered stool and gas seen throughout the colon without significant distention. The small bowel loops are normal caliber. Appendix is not seen well. There is no free air or free fluid. ABDOMINAL WALL: No significant hernia is appreciated. LYMPH NODES: Normal. VASCULAR: Unremarkable. PELVIC VISCERA: There is no free air or free fluid. The prostate gland is normal size. No abnormal size pelvic or inguinal lymph nodes seen. OSSEOUS STRUCTURES: No aggressive lytic or sclerotic process seen. IMPRESSION: 1. Bilateral nephrolithiasis. 2. 3 mm nonobstructive radiopaque calculi right proximal ureter with mild hydronephrosis. 3. Partially obstructive 3 mm radiopaque calculi left distal ureter with mild hydroureter and hydronephrosis. 4. Mild constipation Assessment & Plan Assessment & Plan (1) Kidney calculi: Code(s): N20.0 - Calculus of kidney (2) Hydronephrosis: Code(s): N13.30 - Unspecified hydronephrosis (3) Bilateral ureteral calculi: Code(s): N20.1 - Calculus of ureter Plan I will send urine for culture. Renal US with a fu post. Orders: Orders US retroperitoneal comp 08/03/23 N13.30 - Unspecified hydronephrosis, N20.0 - Calculus of kidney, N20.1 - Calculus of ureter Calcium 08/03/23 N20.1 - Calculus of ureter Parathyroid Hormone Related Pr 08/03/23 N20.1 - Calculus of ureter AMB Post Void Residual by ultrasound 08/03/23 N39.8 - Other specified disorders of urinary system AMB Urinalysis Automated 08/03/23 Z13.9 - Encounter for screening, unspecified Urine Culture 08/03/23 N39.0 - Urinary tract infection, site not specified Medications: Changed From tamsulosin (Flomax) 0.4 mg PO DAILY 2 weeks 14 caps 0RF To tamsulosin (Flomax) 0.4 mg PO DAILY 20 caps 0RF Patient Instructions: The patient had an opportunity to ask questions regarding treatment plan. All questions were answered. Imaging, Laboratory studies and physical exam results were discussed and reviewed in detail. No major barriers to understanding were identified. The patient expressed understanding and agreement with the above treatment plan. The patient is aware they should contact our office by phone for worsening of their current condition or the appearance of new symptoms. Compliance is encouraged with any medications and followup testing that is ordered. It is a privilege to be allowed the opportunity to participate in the urologic care of your patient. If you have any questions or concerns regarding treatment for the above conditions please do not hesitate to contact me. The office telephone contact is [phone]. This note is constructed in part using voice recognition software. While every effort has been made to ensure accuracy billing adjudicator errors may have been included. Yours sincerely, Erika Chaney MD Coding Level of Care Code New Pt Level 4 (04083) Diagnoses Kidney calculi N20.0 Hydronephrosis N13.30 Bilateral ureteral calculi N20.1 CPT Codes Post Residual Void - PVR CPT Code: 77122-Xzww Void Residual by ultrasound ([id number])
== END 2023-08-03 14:33 | disposition home or self-care (01) ==
PROVIDERS: Visit Provider Urology
DX: N20.0 Calculus of kidney (principal); N13.30 Unspecified hydronephrosis; N20.1 Calculus of ureter
CPT/HCPCS: 99204

== ENCOUNTER 2023-08-30 14:25 | Outpatient (REF) | payer MEDICAID, SELFPAY ==
--- NOTE | ~2023-08-30 | US_ITS ---
EXAMINATION: US RETROPERITONEAL LIMITED (RENAL ONLY) CLINICAL INFORMATION: Calculus of kidney. COMPARISON: CT abdomen and pelvis 06/28/2023. Renal ultrasound 12/12/2014. TECHNIQUE: Real-time imaging of the kidneys. FINDINGS: RIGHT KIDNEY: 9.7 x 3.2 x 5.7 cm (SAG x AP x TRV). The kidney is normal in size, contour, and echogenicity. Renal cortical thickness is normal. No calculi or focal parenchymal lesions. No hydronephrosis. There are a few small echogenic foci in the lower pole which likely represent nonobstructing calculi. LEFT KIDNEY: 11.1 x 5.7 x 4.2 cm (SAG x AP x TRV). The kidney is normal in size, contour, and echogenicity. Renal cortical thickness is normal. No calculi or focal parenchymal lesions. No hydronephrosis. US/US renal BI IMPRESSION: 1. Small echogenic foci in the lower pole of the right kidney likely represent nonobstructing calculi. 2. Normal appearance of the left kidney.
== END 2023-08-30 14:26 | disposition home or self-care (01) ==
LOC: HO.US 14:25
PROVIDERS: Visit Provider Urology
DX: N20.0 Calculus of kidney (principal); N20.1 Calculus of ureter; N13.30 Unspecified hydronephrosis
CPT/HCPCS: 76775

== ENCOUNTER 2023-09-09 12:30 | Outpatient (REF) | payer MEDICAID, SELFPAY ==
--- NOTE | ~2023-09-09 | US_ITS ---
EXAMINATION: US PELVIS LIMITED (BLADDER) CLINICAL INFORMATION: Renal stones. COMPARISON: Renal ultrasound 08/30/2023 and 12/12/2014. CT abdomen and pelvis 06/28/2023. TECHNIQUE: Real-time imaging of the bladder. FINDINGS: BLADDER: Well distended and normal. Bilateral ureteral jets are demonstrated. Prevoid bladder volume is 582 mL. Postvoid bladder volume is 28 mL. ADDITIONAL FINDINGS: Prostate gland measures 4.4 x 2.6 x 3.8 cm for a volume of 23 mL. US/US bladder IMPRESSION: No significant urinary retention.
[2023-09-09 14:10] LABS: Calcium 9.8 mg/dL (8.4-10.2)
[2023-09-16 19:48] LABS: Parathyroid Hormone Related Pr 9 pg/mL (11-20)
== END 2023-09-09 12:31 | disposition home or self-care (01) ==
LOC: HO.US 12:30
PROVIDERS: Visit Provider Urology
DX: N20.0 Calculus of kidney (principal); N20.1 Calculus of ureter; N18.30 Chronic kidney disease, stage 3 unspecified
CPT/HCPCS: 36415; 76857; 82310; 83519

== ENCOUNTER 2023-09-16 15:47 | Outpatient (AMB) | payer MEDICAID, SELFPAY ==
--- NOTE | 2023-09-16 15:47 | A.OFFVIS_ITS ---
Intake Intake Visit Reasons: 4w/US/litholink Intake Note: Patient presents today 4 week follow-up with Ultrasound Results, Patient failed to do the Litholink: Meds- Tamsulosin & Prednisone Allergies to Antibiotic- No Known Allergies Blood Thinner- None [employer] Attendance Secretary Required: No Accompanied by: Self / Same As Patient Allergies sumatriptan [From Imitrex] Adverse Reaction (Verified 09/16/23 15:49) Swelling HPI HPI Comments History of Present Illness Details Landen is a 22-year-old male who presents for Telehealth FU due to nephrolithiasis. 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 Partially obstructive 3 mm radiapaque calculi left distal ureter, and 3 mm non obstructive calculi right proximal ureter with mild hydronephrosis. A diet sheet was given to him. I reviewed the diet sheet with him instructing the importance of consuming adequate amount of fluids, low oxalate, low sodium and advised to reduce animal protein. 09/16/23--I discussed renal and bladder US-dated 08/30/23 and 09/09/23-- right nonobstructing small kidney stone, hydronephrosis resolved, bilateral ureteral jets 09/16/2023: Plan: 24 hr urine, fu in 10-12 weeks [facility] Surgical History No pertinent past surgical history Family History Father No problems noted. Mother No problems noted. Social History Alcohol intake: current Alcohol intake frequency: does not drink Patient Tobacco Use Status: Never used Tobacco Substance Use Type: Marijuana Review of Systems Const All systems reviewed & are unremarkable except as noted in HPI and below Reports no additional complaints Eyes Reports no additional complaints Card Denies leg edema Resp Denies cough GI Denies constipation Musc Reports no additional complaints Skin/Breast Denies rash and Denies unusual bruising Neuro Reports no additional complaints Psych Reports no additional complaints Endo Reports no additional complaints Teto/Lymph Reports no additional complaints Aller/Immun Reports no additional complaints Results Reviewed Results Reviewed: Date of Service: 08/30/23 EXAMINATION: US RETROPERITONEAL LIMITED (RENAL ONLY) CLINICAL INFORMATION: Calculus of kidney. COMPARISON: CT abdomen and pelvis 06/28/2023. Renal ultrasound 12/12/2014. TECHNIQUE: Real-time imaging of the kidneys. FINDINGS: RIGHT KIDNEY: 9.7 x 3.2 x 5.7 cm (SAG x AP x TRV). The kidney is normal in size, contour, and echogenicity. Renal cortical thickness is normal. No calculi or focal parenchymal lesions. No hydronephrosis. There are a few small echogenic foci in the lower pole which likely represent nonobstructing calculi. LEFT KIDNEY: 11.1 x 5.7 x 4.2 cm (SAG x AP x TRV). The kidney is normal in size, contour, and echogenicity. Renal cortical thickness is normal. No calculi or focal parenchymal lesions. No hydronephrosis. US/US renal BI IMPRESSION: 1. Small echogenic foci in the lower pole of the right kidney likely represent nonobstructing calculi. 2. Normal appearance of the left kidney. Date of Service: 09/09/23 EXAMINATION: US PELVIS LIMITED (BLADDER) CLINICAL INFORMATION: Renal stones. COMPARISON: Renal ultrasound 08/30/2023 and 12/12/2014. CT abdomen and pelvis 06/28/2023. TECHNIQUE: Real-time imaging of the bladder. FINDINGS: BLADDER: Well distended and normal. Bilateral ureteral jets are demonstrated. Prevoid bladder volume is 582 mL. Postvoid bladder volume is 28 mL. ADDITIONAL FINDINGS: Prostate gland measures 4.4 x 2.6 x 3.8 cm for a volume of 23 mL. IMPRESSION: No significant urinary retention. Assessment & Plan Assessment & Plan (1) Kidney calculi: Code(s): N20.0 - Calculus of kidney Plan 24 hr urine, fu in 10-12 weeks Patient Instructions: The patient had an opportunity to ask questions regarding treatment plan. All questions were answered. Imaging, Laboratory studies and physical exam results were discussed and reviewed in detail. No major barriers to understanding were identified. The patient expressed understanding and agreement with the above treatment plan. The patient is aware they should contact our office by phone for worsening of their current condition or the appearance of new symptoms. Compliance is encouraged with any medications and followup testing that is ordered. It is a privilege to be allowed the opportunity to participate in the urologic care of your patient. If you have any questions or concerns regarding treatment for the above conditions please do not hesitate to contact me. The office telephone contact is [phone]. This note is constructed in part using voice recognition software. While every effort has been made to ensure accuracy blaster helper errors may have been included. Yours sincerely, Erika Chaney MD Telehealth Telehealth Location of provider rendering services: practice address Location of patient: address on file Patient Identification confirmed using: Name, : Yes Telehealth method: voice only Patient verbally consented to treatment: Yes Patient verbally consented to billing insurance company: Yes Patient informed of any privacy concerns related to visit: Yes Minutes spent on Phone/Video with Pt.: 15 Coding Level of Care Code Tele New Pt Level 3 (31566) Diagnoses Kidney calculi N20.0
== END 2023-09-16 16:30 | disposition home or self-care (01) ==
LOC: HO.HUSH 15:47
PROVIDERS: Visit Provider Urology
DX: N20.0 Calculus of kidney (principal)
CPT/HCPCS: 99213

== ENCOUNTER → 2023-09-16 15:47 | Outpatient (BNVA) | payer MEDICAID, SELFPAY | PROVIDERS: Visit Provider Urology ==